=== PATIENT | male | born 1950 | race Caucasian/White ===

== ENCOUNTER 2023-01-03 10:20 | Emergency (ER) | payer MEDICARE, OTHER ==
[2023-01-03] MEDS ORDERED: Diphtheria,Pertussis(Acell),Tetanus Vaccine 0.5 ML Syringe ONE (10:53)
[2023-01-03] MEDS ORDERED: Diphtheria,Pertussis(Acell),Tetanus Vaccine 0.5 ML Syringe IM ONE (11:18)
== END 2023-01-03 11:45 | disposition home or self-care (01) ==
LOC: JD.ED 10:20
DX: S01.01XA Laceration without foreign body of scalp, initial encounter (principal); Z23 Encounter for immunization; I10 Essential (primary) hypertension; Z79.899 Other long term (current) drug therapy; W22.8XXA Striking against or struck by other objects, initial encounter; Y93.02 Activity, running
CPT/HCPCS: 12001; 90471; 90715; 99282; 99282-25